=== PATIENT | female | born 1985 | race Caucasian/White ===

== ENCOUNTER 2019-07-30 13:04 | Inpatient (IN) ==
[2019-07-30] MEDS ORDERED: SENOKOT PO PRN (15:33)
[2019-07-30] MEDS ORDERED: NICODERM PATCH TD PRN (15:33)
[2019-07-30] MEDS ORDERED: BENTYL PO PRN (15:33)
[2019-07-30] MEDS ORDERED: DULCOLAX PR PRN (15:33)
[2019-07-30] MEDS ORDERED: SEROQUEL PO PRN (15:33)
[2019-07-30] MEDS ORDERED: ROBAXIN PO PRN (15:33)
[2019-07-30] MEDS ORDERED: SINEMET 25/100 PO PRN (15:33)
[2019-07-30] MEDS ORDERED: ATARAX PO PRN (15:33)
[2019-07-30] MEDS ORDERED: IMODIUM PO PRN (15:33)
[2019-07-30] MEDS ORDERED: PHENOBARBITAL IV PRN (15:33)
[2019-07-30] MEDS ORDERED: MAALOX PLUS LIQUID PO PRN (15:33)
[2019-07-30] MEDS ORDERED: ZOFRAN ODT PO PRN (15:33)
[2019-07-30] MEDS ORDERED: D5W 1,000 ML IV PRN (15:33)
[2019-07-30] MEDS ORDERED: ZOFRAN IV PRN (15:33)
[2019-07-30] MEDS ORDERED: DESYREL PO PRN (15:33)
[2019-07-30] MEDS ORDERED: TYLENOL PO PRN (15:33)
[2019-07-30] MEDS ORDERED: SUBOXONE 2 MG/0.5 MG FILM SL SCH (15:45)
[2019-07-30 16:56] LABS: HEMOGLOBIN 13.9 g/dL (12.0-16.0); MPV 10.8 FL (7.4-10.4)
[2019-07-30 17:00] LABS: HEMATOCRIT 42.5 % (37.0-47.0); MCH 29.4 PG (27-31); MCHC 32.7 g/dL (33-37); RBC 4.72 XMIL (4.2-5.4); RDW 12.1 % (11.5-14.5); WBC 5.96 X1000 (4.8-10.8)
[2019-07-30 17:09] LABS: INR 0.93; PROTIME 12.9 Seconds (11.0-16.0)
[2019-07-30 17:22] LABS: AGAP 11; ALBUMIN 4.6 g/dL (3.5-5.0); ALKALINE PHOSPHATASE 67 U/L (32-104); BUN 14 mg/dL (8-22); CALCIUM 9.2 mg/dL (8.8-10.2); CHLORIDE 97 mmol/L (98-107); COSMO 276; CREATININE 0.7 mg/dL (0.5-0.9); ESTIMATED GFR > 60; GLUCOSE 87 mg/dL (70-104); GOT 16 U/L (10-30); GPT 15 U/L (10-36); POTASSIUM 3.6 mmol/L (3.5-5.1); SODIUM 138 mmol/L (136-145); TCO2 30 mmol/L (25-35); TOTAL PROTEIN 7.3 g/dL (6.3-8.3)
[2019-07-30 17:26] LABS: AMYLASE 58 U/L (20-200); LIPASE 22 U/L (13-60)
[2019-07-30 18:00] LABS: URINE SOURCE CLEAN CATCH
[2019-07-30 18:05] LABS: BILIRUBIN URINE NEGATIVE (NEGATIVE); BLOOD URINE NEGATIVE (NEGATIVE); COLOR YELLOW; GLUCOSE URINE NEGATIVE (NEGATIVE); KETONE URINE NEGATIVE (NEGATIVE); LEUKOCYTES URINE NEGATIVE (NEGATIVE); NITRITE URINE NEGATIVE (NEGATIVE); PH URINE 6.5; PROTEIN URINE 30 mg/dL (NEGATIVE); SP GRAVITY URINE 1.022; TURBIDITY URINE CLEAR (CLEAR); UROBILINOGEN URINE NORMAL (NORMAL)
[2019-07-30 18:17] LABS: UR AMPHETAMINES QUAL PRESUMPTIVE POSITIVE (NONE DETECT); UR BARBITUATES QUAL NONE DETECTED (NONE DETECT); UR BENZODIAZEPIN QUAL NONE DETECTED (NONE DETECT); UR CANNABINOIDS QUAL NONE DETECTED (NONE DETECT); UR COCAINE QUAL NONE DETECTED (NONE DETECT); UR METHADONE QUAL NONE DETECTED (NONE DETECT); UR METHAMPHETAMINE QUAL NONE DETECTED (NONE DETECT); UR OPIATES QUAL NONE DETECTED (NONE DETECT); UR OXYCODONE QUAL NONE DETECTED (NONE DETECT); UR PCP QUAL NONE DETECTED (NONE DETECT); UR PROPOXYPHENE QUAL NONE DETECTED (NONE DETECT); UR TCA QUAL NONE DETECTED (NONE DETECT)
[2019-07-30 18:30] LABS: UR EPITHELIAL CELLS >10 /HPF (<10); URINE BACTERIA 1+ /HPF; URINE CASTS NONE SEEN; URINE CRYSTALS CA OXALATE PRESENT; URINE RBC <10 /HPF (<10); URINE WBC <10 /HPF (<10); URINE YEAST NONE SEEN
[2019-07-30] MEDS: TUBERSOL ID ONE ×2 (22:24→22:28)
--- NOTE | 2019-07-30 23:58 | HISTORY AND PHYSICAL ---
CHIEF COMPLAINT: Nausea, vomiting. HISTORY OF PRESENT ILLNESS: Patient is a 33-year-old female who presented to [facility] secondary to nausea, vomiting, abdominal pain, myalgias. Notes that she has been abusing opioids and methamphetamine. She has been trying to stay clean, but unable to. SOCIAL HISTORY: She is legally . Unemployed. Lives at home in [facility]. PAST MEDICAL HISTORY: Hypertension, anxiety, depression, asthma as a child, pneumonia twice in 2019. MEDICATIONS: Hydrochlorothiazide, atenolol, Singulair. ALLERGIES: No known drug allergies. REVIEW OF SYSTEMS: CINA score is 18 secondary to constantly sniffing, watery eyes, runny nose, gooseflesh, anxiety, fidgeting, mild tremors. She has got mild sweating, frequent yawning, frequent nausea with dry heaves, abdominal cramps, diarrhea. She is restless, unable sit still, decreased oral intake. Denies any fevers, chills, cough, congestion. Denies headaches, blurred vision, change in vision. Denies any numbness, tingling, or focalized weakness. Denies skin rashes, weight loss, weight gain. Denies headaches, blurred vision, or change in vision. Denies any dysuria. Does have diarrhea. Denies any hematemesis, hematochezia. SUBSTANCE ABUSE HISTORY: Patient has not been in treatment before. However, substance abuse has caused relationship problems. She is currently from her . It has caused work problems. Started drinking at 16, currently rarely drinks. Started marijuana at 15, currently uses occasionally. Started depressants at 16, last use was approximately 2 weeks ago, otherwise uses rarely. Started stimulants at 20, used this morning via smoking approximately half a gram a day for greater than 12 years. Started opiates at 17, currently is taking [place], Roxicodone, and snorting 1 point per day for the past year. Started nicotine at 16, currently smokes around 5 cigarettes a day. FAMILY HISTORY: Noncontributory. PHYSICAL EXAMINATION: VITAL SIGNS: Reviewed. GENERAL: She is awake, alert, in no current respiratory distress. HEENT: Normocephalic. NECK: Supple. CARDIOVASCULAR: Regular rate. CHEST: Clear. ABDOMEN: Soft. EXTREMITIES: Moves all extremities. NEUROLOGIC: No changes. LABORATORIES: Pending. ASSESSMENT: 1. Nausea, vomiting. 2. Abdominal pain. 3. Myalgias. 4. Paresthesias. 5. Paroxysmal sweating. 6. Polysubstance use and abuse. 7. Chronic tobacco abuse. PLAN: We are going to admit patient to the hospital. Begin counseling. We will start Suboxone and we will follow. cc: Philippe Arriaza MD
[2019-07-31] MEDS: LIBRIUM PO PRN ×2 (05:26→14:38)
[2019-07-31] MEDS: PROTONIX PO SCH ×2 (05:27→07:58)
[2019-07-31] MEDS ORDERED: M.V.I.-12 10 ML, FOLIC ACID 1 MG, MAGNESIUM SULFATE 1 GM, THIAMINE 100 MG in NS 1,000 ML IV ONE (08:00)
[2019-07-31] MEDS: HYDROCHLOROTHIAZIDE PO SCH (09:21)
[2019-07-31] MEDS: THERA M PLUS PO SCH (09:21)
[2019-07-31] MEDS: FOLIC ACID PO SCH (09:21)
[2019-07-31] MEDS: TENORMIN PO SCH (09:21)
[2019-07-31] MEDS: VITAMIN B-1 PO SCH (09:21)
[2019-07-31] MEDS: SUBOXONE 2 MG/0.5 MG FILM SL SCH ×2 (09:22→21:17)
[2019-07-31] MEDS: MOTRIN PO PRN (14:38)
--- NOTE | 2019-08-01 01:06 | PROGRESS NOTE ---
DATE: 07/31/2019 SUBJECTIVE: The patient notes that she is feeling a little bit better. Still having some muscle aches and sweating. Denies fevers or chills. States that she wants to stay on Suboxone as an outpatient. PHYSICAL EXAMINATION: Vital Signs: Reviewed. Temperature 98 degrees, pulse 89, respiratory rate 18, BP 139/99. General: Patient is pleasant. HEENT: Normocephalic. Neck: Supple. Cardiovascular: Regular rate. Chest: Clear. Abdomen: Soft. Extremities: Moves all extremities. Neurologic: No changes. ASSESSMENT: 1. Nausea and vomiting. 2. Abdominal pain. 3. Myalgias. 4. Paresthesias. 5. Paroxysmal sweating. 6. Opiate abuse, withdrawal and stabilization. PLAN: We will continue Suboxone. Continue counseling. Further orders [*] cc: Philippe Arriaza MD
[2019-08-01] MEDS: PROTONIX PO SCH (06:21)
[2019-08-01] MEDS: TENORMIN PO SCH (09:12)
[2019-08-01] MEDS: HYDROCHLOROTHIAZIDE PO SCH (09:12)
[2019-08-01] MEDS: THERA M PLUS PO SCH (09:12)
[2019-08-01] MEDS: VITAMIN B-1 PO SCH (09:12)
[2019-08-01] MEDS: SUBOXONE 2 MG/0.5 MG FILM SL SCH (09:12)
[2019-08-01] MEDS: FOLIC ACID PO SCH (09:12)
[2019-08-01] MEDS: MOTRIN PO PRN (16:46)
[2019-08-01] MEDS: SUBOXONE 8 MG/2 MG FILM SL SCH (20:30)
--- NOTE | 2019-08-01 21:43 | PROGRESS NOTE ---
DATE: 08/01/2019 SUBJECTIVE: The patient notes that she is feeling better although still having lots of muscle aches and sweating. Denies any fevers or chills. PHYSICAL EXAMINATION: Vital Signs: Reviewed. She is afebrile. Pulse is stable. Blood pressure is elevated at 130s over 100s. General: Patient is awake, pleasant, in no respiratory distress. HEENT: Normocephalic. Neck: Supple. Cardiovascular: Regular rate. Chest: Clear. Abdomen: Soft. Extremities: Moves all extremities. Neurologic: No changes. ASSESSMENT: 1. Nausea and vomiting. 2. Abdominal pain. 3. Myalgias. 4. Paresthesias. 5. Paroxysmal sweating. 6. Opiate abuse withdrawal and stabilization. PLAN: We are going to continue the patient in the hospital. Currently, he is still having some withdrawal symptoms. We are going to increase Suboxone to 8/2 daily and we will follow. Continue counseling. cc: Philippe Arriaza MD
[2019-08-02] MEDS ORDERED: ATARAX PO PRN ×2 (06:33→12:34)
[2019-08-02] MEDS: HYDROCHLOROTHIAZIDE PO SCH (09:47)
[2019-08-02] MEDS: TENORMIN PO SCH (09:47)
[2019-08-02] MEDS: SUBOXONE 8 MG/2 MG FILM SL SCH ×2 (09:47→22:08)
[2019-08-02] MEDS: FOLIC ACID PO SCH (09:47)
[2019-08-02] MEDS: VITAMIN B-1 PO SCH (09:47)
[2019-08-02] MEDS: PROTONIX PO SCH (09:47)
[2019-08-02] MEDS: THERA M PLUS PO SCH (09:47)
--- NOTE | 2019-08-03 04:13 | PROGRESS NOTE ---
DATE: 08/02/2019 SUBJECTIVE: Patient notes that she is still little drowsy this morning, she is nervous about going home. Uncertain if she is on too high dose Suboxone. PHYSICAL: Vital Signs: Reviewed. She is awake, alert. She is able to ambulate down the stairs to smoke and back. HEENT: Normocephalic. Neck: Supple. CV: Regular rate . Chest: Clear nonlabored. Abdomen: Soft, nondistended. Extremities: Moves all extremities. Neuro: No changes. ASSESSMENT: 1. Nausea, vomiting . 2. Abdominal pain. 3. Myalgias . 4. Paresthesias. 5. Daytime somnolence . 6. Opiate abuse withdrawal and stabilization 7. Hypertension. PLAN: Will continue patient in the hospital today, continue to follow her drowsiness, will follow her blood pressures. Hopefully she can improve and discharge home this afternoon though we may need to wean her dose slightly, regardless we will follow. Home [*] today or tomorrow depends on her symptoms. cc: Philippe Arriaza MD
[2019-08-03] MEDS: PROTONIX PO SCH (06:01)
[2019-08-03] MEDS: MOTRIN PO PRN (06:01)
[2019-08-03] MEDS: VITAMIN B-1 PO SCH (11:07)
[2019-08-03] MEDS: HYDROCHLOROTHIAZIDE PO SCH (11:07)
[2019-08-03] MEDS: TENORMIN PO SCH (11:07)
[2019-08-03] MEDS: THERA M PLUS PO SCH (11:07)
[2019-08-03] MEDS: FOLIC ACID PO SCH (11:07)
[2019-08-03] MEDS: SUBOXONE 8 MG/2 MG FILM SL SCH (11:07)
[2019-08-03 12:56] VITALS: BP 122/68
--- NOTE | 2019-08-04 21:08 | DISCHARGE SUMMARY ---
ADMISSION DATE: 07/30/2019 DISCHARGE DATE: 08/03/2019 DISCHARGE DIAGNOSES: 1. Nausea and vomiting. 2. Abdominal pain. 3. Myalgias. 4. Paresthesias. 5. Paroxysmal sweating. 6. Opiate abuse withdrawal and stabilization. 7. Chronic anxiety and depression. CONSULTATIONS: None. PROCEDURES: None. BRIEF HOSPITAL COURSE: The patient is a 33-year-old female who presented to the hospital with increased nausea, vomiting, abdominal pain, paresthesias, dry heaves at times. She was having mild tremors, visible sweating and was admitted with opiate withdrawal for stabilization. On discharge, patient is awake, alert. Her blood pressures have remained stable. Her anxiety and depression, although still somewhat problematic, are stable. She will be discharged home. She was placed on Suboxone. The dose was increased to 8/2 which she tolerated much better. She continued to smoke while she was in the hospital. Again, we discussed with her the perils of smoking as well as reasons to stop. DISPOSITION: Greater than 30 minutes was spent in total care. Discussed with patient that she needs to stop smoking. She needs to avoid all persons, places, situations which she has been using and abusing opiates in the past. She needs outpatient life counseling as well as drug counseling. Counseling was performed today by myself. She did start on Suboxone and ultimately increased to 8/2 which she tolerated very well twice a day, which alleviated her withdrawal symptoms. cc: Philippe Arriaza MD
== END 2019-08-03 13:40 | disposition home or self-care (01) | DRG 392 ==
LOC: P.MEDSURG 15:50
PROVIDERS: ADMIT Family Medicine; ATTEND Family Medicine